=== PATIENT | female | born 2000 | race African-American/Black ===

== ENCOUNTER 2022-12-02 00:12 | Emergency (ER) | payer SELFPAY ==
[2022-12-02] MEDS ORDERED: Ketorolac Tromethamine 30 MG/ML VIAL ONE (02:41)
[2022-12-02] MEDS ORDERED: Dexamethasone 4 mg/ml Vial ONE (02:41)
[2022-12-02 04:14] LABS: #Eosinphils 0.1 10x3/uL (0.0-0.5); #Monocytes 0.7 10x3/uL (0.0-1.1); #Neutrophils 5.3 10x3/uL (1.5-8.4); %Basophils 0.3 % (0.0-2.0); %Eosinophils 1.3 % (0.0-6.0); %Lymphocytes 22.9 % (18.0-47.0); %Monocytes 8.2 % (0.0-10.0); %Neutrophils 66.8 % (40.0-75.0); Hematocrit 30.8 % (34.9-44.5); Hemoglobin 10.1 g/dL (12.0-15.5); Mean Corpuscular HGB CONC 32.8 g/dL (32.0-36.0); Mean Corpuscular Hemoglobin 25.9 pg (27.0-33.0); Platelet Count 301 10x3/uL (150-450); RBC Distribution Width 13.9 % (11.5-14.5); White Blood Cell (WBC) Count 7.9 10x3/uL (3.5-10.5)
[2022-12-02] MEDS ORDERED: AMOXicillin 250 MG CAP PO SCH (04:30)
[2022-12-02 04:33] LABS: Anion Gap 13 mmol/L (10-20); BUN (Urea Nitrogen) 6 mg/dL (7.0-18.7); Calc. Creatinine Clearance 0 mL/min (70-130); Carbon Dioxide 24 mmol/L (22-29); Chloride 106 mmol/L (98-107); Potassium 3.2 mmol/L (3.5-5.1); Sodium 140 mmol/L (136-145)
[2022-12-02 04:34] LABS: ALT (SGPT) 15 U/L (8-55); AST (SGOT) 16 U/L (5-34); Albumin 3.8 g/dL (3.5-5.0); Alkaline Phosphatase 85 U/L (40-110); Bilirubin, Total 0.3 mg/dL (0.2-1.2); Calcium 9.1 mg/dL (7.6-10.4); Estimated GFR 128; Globulin 3.5 g/dL (2.4-3.5); Glucose 99 mg/dL (70-105); Protein, Total 7.3 g/dL (6.0-8.3)
[2022-12-02] MEDS ORDERED: Iopamidol 300 61% 100 ML VIAL FS ONE (08:48)
== END 2022-12-02 04:35 | disposition home or self-care (01) ==
LOC: CSHERS 00:12
DX: J03.90 Acute tonsillitis, unspecified (principal); F17.290 Nicotine dependence, other tobacco product, uncomplicated
CPT/HCPCS: 70491; 80053; 85025; 86140; 96374; 96375; J1100; J1885; Q9967